=== PATIENT | female | born 1950 ===

== ENCOUNTER 2022-07-28 13:07 | Inpatient (IN) | payer MEDICARE ==
--- NOTE | 2022-07-28 15:28 | Emergency Department Report ---
ED General Adult HPI - General Chief complaint: Altered Mental Status Stated complaint: AMS PUI?: No Time Seen by Provider: 07/28/22 15:16 Source: family (SON AT BEDSIDE), EMS Mode of arrival: Stretcher Limitations: Altered Mental Status - History of Present Illness Initial comments: This is a 71-year-old female brought in by EMS with concerns of altered mental status. At the time of my arrival at bedside at 3:20, the son was at the bedside who provided a entire history. According to the son the mother has a medical history of diabetes and also hypertension and she has been a dialysis patient for the past 10 years. The m other has had dialysis this past or according to the son the patient had lost some blood and was foggy but the next day she was comfortably back to baseline. According to the son the baseline is that patient is AOx4 and ambulatory. Today, patient also had dialysis this morning and while on machine patient loss of consciousness and when regained alert, patient appears and that is why she is here today. At the time my evaluation patient is just rambling nonsense and does not follow direction (both verbal or written command). There are no focal neurological deficit. Severity scale (0 -10): 0 - Related Data Allergies Allergy/AdvReac Type Severity Reaction Status Date / Time lisinopril Allergy Unknown Verified 07/28/22 13:26 metoclopramide [From Reglan] Allergy Unknown Verified 07/28/22 13:26 ED Review of Systems ROS: Stated complaint: AMS Other details as noted in HPI Comment: Unobtainable due to pts medical conditions ED Past Medical Hx - Past Medical History Previous Medical History?: Yes Hx Hypertension: Yes Hx Diabetes: Yes Hx Renal Disease: Yes (HEMODYALYSIS) ED Physical Exam - General Limitations: Altered Mental Status General appearance: alert, other (Patient is pleasantly altered and rambling on nonsense. Does not recognize the son.) - Head Head exam: Present: atraumatic, normocephalic - Eye Eye exam: Present: normal appearance, PERRL, EOMI Pupils: Present: normal accommodation - ENT ENT exam: Present: normal exam, mucous membranes moist - Neck Neck exam: Present: normal inspection, full ROM - Respiratory Respiratory exam: Present: normal lung sounds bilaterally - Cardiovascular Cardiovascular Exam: Present: regular rate, normal rhythm, normal heart sounds - GI/Abdominal GI/Abdominal exam: Present: soft - Extremities Exam Extremities exam: Present: normal inspection, full ROM, normal capillary refill. Absent: tenderness - Back Exam Back exam: Present: normal inspection, full ROM - Neurological Exam Neurological exam: Present: alert, altered, CN II-XII intact - Skin Skin exam: Present: normal color ED Course Vital Signs 07/28/22 07/28/22 07/28/22 13:07 13:56 14:01 Temperature 98.1 F Pulse Rate 86 79 77 Respiratory 18 19 14 Rate Blood Pressure 152/56 Blood Pressure [Left] O2 Sat by Pulse 99 100 Oximetry 07/28/22 07/28/22 07/28/22 14:15 14:31 14:45 Temperature Pulse Rate 81 84 89 Respiratory 18 24 18 Rate Blood Pressure 143/59 143/59 130/52 Blood Pressure [Left] O2 Sat by Pulse 100 84 94 Oximetry 07/28/22 07/28/22 07/28/22 15:01 15:15 15:31 Temperature Pulse Rate 92 H 84 85 Respiratory 22 26 H 21 Rate Blood Pressure 143/59 172/66 172/66 Blood Pressure [Left] O2 Sat by Pulse 100 100 100 Oximetry 07/28/22 07/28/22 07/28/22 16:31 16:45 19:39 Temperature Pulse Rate 105 H Respiratory 12 18 Rate Blood Pressure 112/90 Blood Pressure 182/74 [Left] O2 Sat by Pulse 98 96 98 Oximetry 07/28/22 19:41 Temperature Pulse Rate 102 H Respiratory Rate Blood Pressure Blood Pressure [Left] O2 Sat by Pulse Oximetry - Reevaluation(s) Reevaluation #1: 07/28/22 15:54 NURSE BROUGHT TO MY ATTENTION PATIENT IS TOO AGITATED TO GET CXR/CT/BLOOD DRAWS. I WILL GIVE X1 VERSED 5MG 07/28/22 19:09 DURING REEVALUATION, PATIENT STILL APPEARS CONFUSED. LABS ARE CONSISTENT WITH ESRD-HD AND IMAGES ARE UNREMARKABLE. SPOKE TO DR. VELEZ. ED Medical Decision Making - Lab Data Result diagrams: 07/28/22 16:08 07/28/22 16:08 - EKG Data -: EKG Interpreted by Me EKG shows normal: sinus rhythm Rate: normal - EKG Data 07/28/22 15:28 EKG at 1446 review sinus rhythm at [address] segment elevation or depression and there is no Wellens wave. 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 Critical care attestation.: If time is entered above; I have spent that time in minutes in the direct care of this critically ill patient, excluding procedure time. ED Disposition Clinical Impression: Dialysis disequilibrium syndrome Disposition: ADMITTED INPATIENT Is pt being admited?: Yes Does the pt Need Aspirin: No Condition: Stable Referrals: JAZMIN IVY MD [Primary Care Provider] - 3-5 Days Time of Disposition: 19:55
[2022-07-28] MEDS: MIDAZOLAM 5 MG/5 ML INJ MDV IV NR ×2 (16:05→16:38)
[2022-07-28 16:25] LABS: Bacteria,Urine 1+ /HPF (Negative); Hyaline Casts,Urine 1 /LPF
[2022-07-28 16:37] LABS: Basophils % (Auto) 0.4 % (0.0-1.8); Hematocrit 33.4 % (30.3-42.9); Hemoglobin 11.1 gm/dl (10.1-14.3); Lymphocytes # (Auto) 0.5 K/mm3 (1.2-5.4); Lymphocytes % (Auto) 6.7 % (13.4-35.0); Mean Corpuscular HGB Conc 33 % (30-34); Mean Corpuscular Volume 91 fl (79-97); Monocytes # (Auto) 0.7 K/mm3 (0.0-0.8); Monocytes % (Auto) 8.3 % (0.0-7.3); Platelet Count 195 K/mm3 (140-440); Red Blood Count 3.69 M/mm3 (3.65-5.03); Red Cell Distribution Width 17.1 % (13.2-15.2)
[2022-07-28 16:40] LABS: Color,Urine Straw (Yellow)
[2022-07-28] MEDS ORDERED: ZIPRASIDONE MESYLATE 20 MG VIAL IM ONE (16:48)
[2022-07-28 16:57] LABS: Albumin 4.2 g/dL (3.9-5); Calcium 9.4 mg/dL (8.4-10.2)
--- NOTE | 2022-07-28 18:14 | Cat Scan Report ---
CT HEAD WITHOUT CONTRAST INDICATION / CLINICAL INFORMATION: ams. TECHNIQUE: All CT scans at this location are performed using CT dose reduction for ALARA by means of automated e xposure control. COMPARISON: None available. FINDINGS: HEMORRHAGE: No evidence of intracranial hemorrhage or extra-axial fluid collection. EXTRA-AXIAL SPACES: Cortical sulci and sylvian fissures are enlarged reflecting a degree of parenchym al volume loss which is somewhat greater than expected for the patient's age of 71 years. Basilar cis terns have an unremarkable appearance. VENTRICULAR SYSTEM: The third and lateral ventricles are mildly enlarged reflecting presence of age r elated parenchymal volume loss. CEREBRAL PARENCHYMA: Periventricular and deep white matter lucency is observed. This is probably seco ndary to microvascular ischemic change. There is no indication of recent infarction. Several remote s mall deep infarctions are identified in a bilateral gangliocapsular distribution as well as in the landeros binsular regions of both cerebral hemisphere. MIDLINE SHIFT OR HERNIATION: There is no mass effect. CEREBELLUM / BRAINSTEM: Brainstem has an unremarkable appearance. Age related cerebellar atrophy is n oted. MIDLINE STRUCTURES:Pituitary gland has an unremarkable appearance. No abnormalities are seen in the p ineal region. INTRACRANIAL VESSELS:Calcified atherosclerotic plaque is present along the course of the cavernous se gments of both internal carotid arteries. Similar findings are seen at the distal vertebral arteries. CRANIOCERVICAL JUNCTION:No significant abnormality. ORBITS: Status post bilateral cataract surgery. No additional abnormality. SOFT TISSUES of HEAD: There is prominent thickening of the scalp at the vertex secondary to increased adipose tissue accumulation in this distribution. CALVARIUM: Evaluation of bone windows reveals no abnormalities. PARANASAL SINUSES / MASTOID AIR CELLS: Frontal sinuses did not develop in this individual. Visualized paranasal sinuses are free from inflammatory mucosal disease. Mastoid air cells are normally pneumat ized. IMPRESSION: 1. No acute intracranial abnormality. 2. Moderate microvascular ischemic change and mild parenchymal volume loss. 3. 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 Signer Name: Eddie Damian MD Signed: 07/28/2022 6:10 PM Workstation Name: [id number]
--- NOTE | 2022-07-28 18:17 | XRay Report ---
CHEST 1 VIEW 07/28/2022 5:46 PM INDICATION / CLINICAL INFORMATION: ams. COMPARISON: None available. FINDINGS: SUPPORT DEVICES: None. HEART / MEDIASTINUM: The cardiac silhouette is borderline enlarged. LUNGS / PLEURA: Mild bilateral interstitial prominence. No large volume pleural effusion. No pneumoth orax. ADDITIONAL FINDINGS: No significant additional findings. IMPRESSION: 1. Questionable mild pulmonary edema. 2. Otherwise, no acute cardiopulmonary abnormality. Signer Name: Ashok Beltran MD Signed: 07/28/2022 6:13 PM Workstation Name: [id number]
--- NOTE | 2022-07-28 22:14 | History and Physical Report ---
History of Present Illness Date of examination: 07/28/22 Date of admission: 07/28/2022 Chief complaint: Altered sensorium History of present illness: 61-year-old female with history of end-stage renal disease on hemodialysis for 10 years after having dialysis at regular basis. Today after dialysis patient became confused and altered sensorium. During my examination also patient was confused and with altered sensorium. Baseline is patient is alert and oriented and takes care for ADLs and walks and physically active. No shortness of breath. No fever or chills. No chest pain. - Past Medical History --Previous Medical History?: Yes --Hypertension: Yes --Diabetes: Yes --Renal Disease: Yes (HEMODYALYSIS) -Past surgical history --AV fistula - Family history -- htn -Social history --no smoking or alcohol or drugs Review of Systems ROS: Constitutional no weight loss or weight gain no fever or chills HEENT no sore throat no post nasal drip no diplopia Neck no neck stiffness no lymph gland enlargement Chest and lungs no shortness of breath cough or wheezing CVS no chest pain no diaphoresis no palpitations GI no nausea no vomiting no diarrhea Genitourinary system no dysuria no flank pain Musculoskeletal system no muscle pains no joint pains [employer] confused and altered Skin no rash no itching Psychiatric no depression no homicidal or suicidal tendencies Hematologic no lymphedema or bruising Endocrine no polydipsia no polyuria no cold intolerance no heat intolerance Medications and Allergies Allergies Allergy/AdvReac Type Severity Reaction Status Date / Time lisinopril Allergy Unknown Verified 07/28/22 13:26 metoclopramide [From Reglan] Allergy Unknown Verified 07/28/22 13:26 Active Meds: Active Medications Midazolam HCl (Midazolam 5 Mg/5 Ml Inj Mdv) 5 mg IV ONCE NR Stop: 07/28/22 23:59 Last Admin: 07/28/22 16:38 Dose: 5 mg Exam - Constitutional Vitals: Temp Pulse Resp BP Pulse Ox 98.1 F 109 H 17 159/75 98 07/28/22 13:07 07/28/22 21:06 07/28/22 21:06 07/28/22 21:06 07/28/22 21:06 General appearance: Present: no acute distress, well-nourished - EENT Eyes: Present: PERRL ENT: hearing intact, clear oral mucosa - Neck Neck: Present: supple, normal ROM - Respiratory Respiratory effort: normal Respiratory: bilateral: CTA - Cardiovascular Heart rate: 78 Rhythm: regular Heart Sounds: Present: S1 & S2. Absent: rub, click - Extremities Extremities: pulses symmetrical, No edema Peripheral Pulses: within normal limits - Abdominal General gastrointestinal: Present: soft, non-tender, non-distended, normal bowel sounds Female genitourinary: Present: normal - Integumentary Integumentary: Present: clear, warm, dry - Musculoskeletal Musculoskeletal: gait normal, strength equal bilaterally - Psychiatric Psychiatric: other (Altered sensorium, confused) - Neurologic Neurologic: CNII-XII intact, moves all extremities Results - Labs CBC & Chem 7: 07/29/22 05:18 07/29/22 05:18 Labs: Laboratory Last Values WBC 7.8 K/mm3 (4.5-11.0) 07/28/22 16:08 RBC 3.69 M/mm3 (3.65-5.03) 07/28/22 16:08 Hgb 11.1 gm/dl (10.1-14.3) 07/28/22 16:08 Hct 33.4 % (30.3-42.9) 07/28/22 16:08 MCV 91 fl (79-97) 07/28/22 16:08 MCH 30 pg (28-32) 07/28/22 16:08 MCHC 33 % (30-34) 07/28/22 16:08 RDW 17.1 % (13.2-15.2) H 07/28/22 16:08 Plt Count 195 K/mm3 (140-440) 07/28/22 16:08 Lymph % (Auto) 6.7 % (13.4-35.0) L 07/28/22 16:08 [place] % (Auto) 8.3 % (0.0-7.3) H 07/28/22 16:08 Eos % (Auto) 0.0 % (0.0-4.3) 07/28/22 16:08 Baso % (Auto) 0.4 % (0.0-1.8) 07/28/22 16:08 Lymph # (Auto) 0.5 K/mm3 (1.2-5.4) L 07/28/22 16:08 [place] # (Auto) 0.7 K/mm3 (0.0-0.8) 07/28/22 16:08 Eos # (Auto) 0.0 K/mm3 (0.0-0.4) 07/28/22 16:08 Baso # (Auto) 0.0 K/mm3 (0.0-0.1) 07/28/22 16:08 Seg Neutrophils % 84.6 % (40.0-70.0) H 07/28/22 16:08 Seg Neutrophils # 6.6 K/mm3 (1.8-7.7) 07/28/22 16:08 Sodium 135 mmol/L (137-145) L 07/28/22 16:08 Potassium 4.5 mmol/L (3.6-5.0) 07/28/22 16:08 Chloride 93.6 mmol/L (98-107) L 07/28/22 16:08 Carbon Dioxide 20 mmol/L (22-30) L 07/28/22 16:08 Anion Gap 26 mmol/L 07/28/22 16:08 BUN 37 mg/dL (7-17) H 07/28/22 16:08 Creatinine 8.5 mg/dL (0.6-1.2) H 07/28/22 16:08 Estimated GFR 5 ml/min 07/28/22 16:08 BUN/Creatinine Ratio 4 % 07/28/22 16:08 Glucose 142 mg/dL (65-100) H 07/28/22 16:08 Calcium 9.4 mg/dL (8.4-10.2) 07/28/22 16:08 Magnesium 1.70 mg/dL (1.7-2.3) 07/28/22 16:08 Total Bilirubin 0.50 mg/dL (0.1-1.2) 07/28/22 16:08 AST 11 units/L (5-40) 07/28/22 16:08 ALT 6 units/L (7-56) L 07/28/22 16:08 Alkaline Phosphatase 93 units/L (35-129) 07/28/22 16:08 Ammonia 19.0 umol/L (25-60) L 07/28/22 16:08 Total Protein 6.4 g/dL (6.3-8.2) 07/28/22 16:08 Albumin 4.2 g/dL (3.9-5) 07/28/22 16:08 Albumin/Globulin Ratio 1.9 % 07/28/22 16:08 Urine Color Straw (Yellow) 07/28/22 Unknown Urine Turbidity Hazy (Clear) 07/28/22 Unknown Specific [place] (Man) 1.005 (1.003-1.030) 07/28/22 Unknown Ur Protein (Man) 3+ mg/dL (Negative) 07/28/22 Unknown Ur Ketones (Man) 15 (Negative) 07/28/22 Unknown Ur Nitrite (Man) Negative (Negative) 07/28/22 Unknown Ur Reducing Substances Not Reportable 07/28/22 Unknown Urine Bilirubin (Man) Negative (Negative) 07/28/22 Unknown Urine Ictotest Not Reportable 07/28/22 Unknown Leukocyte Esterase (Man) Negative (Negative) 07/28/22 Unknown Urine WBC (Auto) 1.0 /HPF (0.0-6.0) 07/28/22 Unknown Urine RBC (Auto) 2.0 /HPF (0.0-6.0) 07/28/22 Unknown U Epithel Cells (Auto) 23.0 /HPF (0-13.0) H 07/28/22 Unknown Urine Bacteria (Auto) 1+ /HPF (Negative) 07/28/22 Unknown Urine RBC (Manual) Negative (Negative) 07/28/22 Unknown Hyaline Casts 1 /LPF 07/28/22 Unknown Short CBC 07/28/22 07/29/22 Range/Units 16:08 05:18 WBC 7.8 9.1 (4.5-11.0) K/mm3 Hgb 11.1 10.3 (10.1-14.3) gm/dl Hct 33.4 31.4 (30.3-42.9) % Plt Count 195 197 (140-440) K/mm3 BMP 07/28/22 07/29/22 16:08 05:18 Sodium 135 L 135 L Potassium 4.5 5.0 Chloride 93.6 L 91.8 L Carbon Dioxide 20 L 24 BUN 37 H 45 H Creatinine 8.5 H 10.0 H Glucose 142 H 123 H Calcium 9.4 9.7 Liver Function 07/28/22 07/29/22 Range/Units 16:08 05:18 Total Bilirubin 0.50 0.40 (0.1-1.2) mg/dL AST 11 10 (5-40) units/L ALT 6 L 5 L (7-56) units/L Alkaline Phosphatase 93 81 (35-129) units/L Albumin 4.2 3.7 L (3.9-5) g/dL Urine 07/28/22 Range/Units Unknown Urine Color Straw (Yellow) Assessment and Plan Advance Directives: Yes (Full code) VTE prophylaxis?: Chemical Plan of care discussed with patient/family: Yes - Patient Problems (1) Dialysis disequilibrium syndrome Current Visit: Yes Status: Acute Plan to address problem: Altered sensorium secondary to disequilibrium Observation for 24 hours (2) Acute encephalopathy Current Visit: Yes Status: Acute Plan to address problem: Altered sensorium secondary to disequilibrium\ Should resolve with time May need another hemodialysis tomorrow Possible discharge tomorrow (3) ESRD on hemodialysis Current Visit: Yes Status: Chronic Plan to address problem: Nephrology consulted Possible hemodialysis tomorrow (4) Hypertension Current Visit: Yes Status: Chronic Qualifiers: Hypertension type: primary hypertension Qualified Code(s): I10 - Essential (primary) hypertension Plan to address problem: Continue antihypertensives and adjust medications as necessary (5) DVT prophylaxis Current Visit: Yes Status: Acute Plan to address problem: On heparin and GI prophylaxis (6) Advance care planning Current Visit: Yes Status: Acute Plan to address problem: Disease education conducted, care plan discussed, diagnosis discussed and prognosis discussed. Patient acknowledged understanding with care plan. +30 minutes.
[2022-07-28] MEDS ORDERED: oxyCODONE /ACETAMINOPHEN 5-325MG TAB PO PRN (22:19)
[2022-07-28] MEDS ORDERED: ONDANSETRON 4 MG/2 ML INJ IV PRN (22:19)
[2022-07-28] MEDS ORDERED: ACETAMINOPHEN 325 MG TAB PO PRN (22:19)
[2022-07-28] MEDS ORDERED: MORPHINE 2 MG/1 ML INJ IV PRN (22:19)
[2022-07-28] MEDS ORDERED: METOCLOPRAMIDE 10 MG/2 ML INJ IV PRN (22:19)
[2022-07-29] MEDS: HEPARIN 5,000 UNIT/1 ML VIAL SUB-Q SCH ×4 (00:51→22:25)
[2022-07-29] MEDS: HALOPERIDOL LACTATE 5 MG/1 ML INJ IM PRN ×2 (02:18→10:53)
[2022-07-29 05:57] LABS: Albumin 3.7 g/dL (3.9-5); Calcium 9.7 mg/dL (8.4-10.2)
[2022-07-29 07:06] LABS: Basophils % (Auto) 0.3 % (0.0-1.8); Hematocrit 31.4 % (30.3-42.9); Hemoglobin 10.3 gm/dl (10.1-14.3); Lymphocytes # (Auto) 1.2 K/mm3 (1.2-5.4); Lymphocytes % (Auto) 13.6 % (13.4-35.0); Mean Corpuscular HGB Conc 33 % (30-34); Mean Corpuscular Volume 92 fl (79-97); Monocytes % (Auto) 11.3 % (0.0-7.3); Platelet Count 197 K/mm3 (140-440); Red Cell Distribution Width 17.9 % (13.2-15.2)
--- NOTE | 2022-07-29 09:41 | Electrocardiograph Report ---
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
--- NOTE | 2022-07-29 09:41 | Electrocardiograph Report ---
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
--- NOTE | 2022-07-29 10:18 | Progress Note ---
Assessment and Plan Assessment and plan: Advance Directives: Yes (Full code) VTE prophylaxis?: Chemical Plan of care discussed with patient/family: Yes - Patient Problems --Dialysis disequilibrium syndrome Altered sensorium secondary to disequilibrium Observation for 24 hours Treat the underlying cause, neurochecks -- Acute toxic metabolic encephalopathy Altered sensorium secondary to disequilibrium\ Treat the underlying cause Dialysis per schedule --ESRD on hemodialysis Nephrology consulted Hemodialysis per schedule Closely monitor renal function, avoid nephrotoxins Renally dose medications --Hypertension Continue antihypertensives and adjust medications as necessary --Obesity; BMI 37.4 Counseling done advised diet modification exercise as tolerated and weight reduction when stable --DVT prophylaxis On heparin and GI prophylaxis Pepcid --Advance care planning Disease education conducted, care plan discussed, diagnosis discussed and prognosis discussed. With the son Patient's son acknowledged understanding with care plan. +30 minutes. We will closely monitor the patient and adjust management as needed Follow MRI of the brain,Follow clinically Physical therapy occupational therapy. When patient is more alert History Interval history: I have seen and examined the patient at the bedside Patient's chart and medications reviewed However patient is lethargic very difficult to arouse Response to deep stimuli Hemodynamically stable Hospitalist Physical - Constitutional Vitals: Temp Pulse Resp BP Pulse Ox 98.1 F 96 H 18 173/66 96 07/28/22 13:07 07/29/22 06:28 07/29/22 06:28 07/29/22 06:28 07/29/22 06:28 General appearance: Present: no acute distress, well-nourished, obese - EENT Eyes: Present: PERRL, EOM intact - Neck Neck: Present: supple, normal ROM - Respiratory Respiratory effort: normal Respiratory: bilateral: diminished, negative: rales, rhonchi, wheezing - Cardiovascular Rhythm: regular Heart Sounds: Present: S1 & S2 - Extremities Extremities: no ischemia, No edema - Abdominal General gastrointestinal: soft, non-tender, non-distended, normal bowel sounds - Psychiatric Psychiatric: other (Lethargic noncommunicative) - Neurologic Neurologic: other (Lethargic noncommunicative) Results - Labs CBC & Chem 7: 07/29/22 05:18 07/29/22 05:18 Labs: Laboratory Last Values WBC 9.1 K/mm3 (4.5-11.0) 07/29/22 05:18 RBC 3.40 M/mm3 (3.65-5.03) L 07/29/22 05:18 Hgb 10.3 gm/dl (10.1-14.3) 07/29/22 05:18 Hct 31.4 % (30.3-42.9) 07/29/22 05:18 MCV 92 fl (79-97) 07/29/22 05:18 MCH 30 pg (28-32) 07/29/22 05:18 MCHC 33 % (30-34) 07/29/22 05:18 RDW 17.9 % (13.2-15.2) H 07/29/22 05:18 Plt Count 197 K/mm3 (140-440) 07/29/22 05:18 Lymph % (Auto) 13.6 % (13.4-35.0) 07/29/22 05:18 [place] % (Auto) 11.3 % (0.0-7.3) H 07/29/22 05:18 Eos % (Auto) 0.0 % (0.0-4.3) 07/29/22 05:18 Baso % (Auto) 0.3 % (0.0-1.8) 07/29/22 05:18 Lymph # (Auto) 1.2 K/mm3 (1.2-5.4) 07/29/22 05:18 [place] # (Auto) 1.0 K/mm3 (0.0-0.8) H 07/29/22 05:18 Eos # (Auto) 0.0 K/mm3 (0.0-0.4) 07/29/22 05:18 Baso # (Auto) 0.0 K/mm3 (0.0-0.1) 07/29/22 05:18 Seg Neutrophils % 74.8 % (40.0-70.0) H 07/29/22 05:18 Seg Neutrophils # 6.8 K/mm3 (1.8-7.7) 07/29/22 05:18 Sodium 135 mmol/L (137-145) L 07/29/22 05:18 Potassium 5.0 mmol/L (3.6-5.0) 07/29/22 05:18 Chloride 91.8 mmol/L (98-107) L 07/29/22 05:18 Carbon Dioxide 24 mmol/L (22-30) 07/29/22 05:18 Anion Gap 24 mmol/L 07/29/22 05:18 BUN 45 mg/dL (7-17) H 07/29/22 05:18 Creatinine 10.0 mg/dL (0.6-1.2) H 07/29/22 05:18 Estimated GFR 4 ml/min 07/29/22 05:18 BUN/Creatinine Ratio 5 % 07/29/22 05:18 Glucose 123 mg/dL (65-100) H 07/29/22 05:18 POC Glucose 73 mg/dL (70-105) 07/28/22 15:22 Calcium 9.7 mg/dL (8.4-10.2) 07/29/22 05:18 Magnesium 1.70 mg/dL (1.7-2.3) 07/28/22 16:08 Total Bilirubin 0.40 mg/dL (0.1-1.2) 07/29/22 05:18 AST 10 units/L (5-40) 07/29/22 05:18 ALT 5 units/L (7-56) L 07/29/22 05:18 Alkaline Phosphatase 81 units/L (35-129) 07/29/22 05:18 Ammonia 19.0 umol/L (25-60) L 07/28/22 16:08 Total Protein 6.1 g/dL (6.3-8.2) L 07/29/22 05:18 Albumin 3.7 g/dL (3.9-5) L 07/29/22 05:18 Albumin/Globulin Ratio 1.5 % 07/29/22 05:18 Urine Color Straw (Yellow) 07/28/22 Unknown Urine Turbidity Hazy (Clear) 07/28/22 Unknown Specific [place] (Man) 1.005 (1.003-1.030) 07/28/22 Unknown Ur Protein (Man) 3+ mg/dL (Negative) 07/28/22 Unknown Ur Ketones (Man) 15 (Negative) 07/28/22 Unknown Ur Nitrite (Man) Negative (Negative) 07/28/22 Unknown Ur Reducing Substances Not Reportable 07/28/22 Unknown Urine Bilirubin (Man) Negative (Negative) 07/28/22 Unknown Urine Ictotest Not Reportable 07/28/22 Unknown Leukocyte Esterase (Man) Negative (Negative) 07/28/22 Unknown Urine WBC (Auto) 1.0 /HPF (0.0-6.0) 07/28/22 Unknown Urine RBC (Auto) 2.0 /HPF (0.0-6.0) 07/28/22 Unknown U Epithel Cells (Auto) 23.0 /HPF (0-13.0) H 07/28/22 Unknown Urine Bacteria (Auto) 1+ /HPF (Negative) 07/28/22 Unknown Urine RBC (Manual) Negative (Negative) 07/28/22 Unknown Hyaline Casts 1 /LPF 07/28/22 Unknown Microbiology: Microbiology 07/28/22 16:08 Peripheral/Venous Blood Culture - Preliminary Culture in Progress 07/28/22 16:08 Peripheral/Venous Blood Culture - Preliminary Culture in Progress Active Medications - Current Medications Current Medications: Generic Name Dose Route Start Last Admin Trade Name Freq PRN Reason Stop Dose Admin Acetaminophen 650 mg 07/28/22 22:19 Acetaminophen 325 Mg Tab PO Q4H PRN Pain MILD(1-3)/Fever >100.5/SIN Famotidine 10 mg 07/29/22 10:00 Famotidine 10 Mg Tab PO BID NAGA Haloperidol Lactate 5 mg 07/29/22 02:11 07/29/22 02:18 Haloperidol Lactate 5 Mg/1 Ml Inj IM 5 mg Q6H PRN Administration Agitation Heparin Sodium (Porcine) 5,000 unit 07/28/22 22:30 07/29/22 00:51 Heparin 5,000 Unit/1 Ml Vial SUB-Q 5,000 unit Q12HR NAGA Administration Morphine Sulfate 2 mg 07/28/22 22:19 Morphine 2 Mg/1 Ml Inj IV Q4H PRN Pain, Moderate (4-6) Ondansetron HCl 4 mg 07/28/22 22:19 Ondansetron 4 Mg/2 Ml Inj IV Q8H PRN Nausea And Vomiting Oxycodone/Acetaminophen 1 tab 07/28/22 22:19 Oxycodone /Acetaminophen 5-325mg Tab PO Q6H PRN Pain, Moderate (4-6) Sodium Chloride 10 ml 07/28/22 23:00 07/29/22 00:40 Sodium Chloride 0.9% 10 Ml Flush Syringe IV 10 ml BID NAGA Administration Sodium Chloride 10 ml 07/28/22 22:19 Sodium Chloride 0.9% 10 Ml Flush Syringe IV PRN PRN LINE FLUSH
[2022-07-29] MEDS: FAMOTIDINE 10 MG TAB PO SCH ×3 (10:22→22:25)
--- NOTE | 2022-07-29 12:45 | Consultation ---
History of Present Illness - Reason for Consult Consult date: 07/29/22 end stage renal disease - History of Present Illness RFC: ESRD on HD HPI: 61 year old F admitted with AMS and confusion. Pt is currently awake but confused and on restraints. She cannot give proper history. She does not know where she goes for dialysis or who is her clerk of scales. ROS: Unable to obtain as pt is confused - Past Medical History --Previous Medical History?: Yes --Hypertension: Yes --Diabetes: Yes --Renal Disease: Yes (HEMODYALYSIS) -Past surgical history --AV fistula - Family history -- htn -Social history --no smoking or alcohol or drugs Medications and Allergies Allergies Allergy/AdvReac Type Severity Reaction Status Date / Time lisinopril Allergy Unknown Verified 07/28/22 13:26 metoclopramide [From Reglan] Allergy Unknown Verified 07/28/22 13:26 Active Meds: Active Medications Acetaminophen (Acetaminophen 325 Mg Tab) 650 mg PO Q4H PRN PRN Reason: Pain MILD(1-3)/Fever >100.5/SIN Famotidine (Famotidine 10 Mg Tab) 10 mg PO BID [facility] Last Admin: 07/29/22 10:22 Dose: 10 mg Haloperidol Lactate (Haloperidol Lactate 5 Mg/1 Ml Inj) 5 mg IM Q6H PRN PRN Reason: Agitation Last Admin: 07/29/22 10:53 Dose: 5 mg Heparin Sodium (Porcine) (Heparin 5,000 Unit/1 Ml Vial) 5,000 unit SUB-Q Q12HR [facility] Last Admin: 07/29/22 10:26 Dose: 5,000 unit Morphine Sulfate (Morphine 2 Mg/1 Ml Inj) 2 mg IV Q4H PRN PRN Reason: Pain, Moderate (4-6) Ondansetron HCl (Ondansetron 4 Mg/2 Ml Inj) 4 mg IV Q8H PRN PRN Reason: Nausea And Vomiting Oxycodone/Acetaminophen (Oxycodone /Acetaminophen 5-325mg Tab) 1 tab PO Q6H PRN PRN Reason: Pain, Moderate (4-6) Sodium Chloride (Sodium Chloride 0.9% 10 Ml Flush Syringe) 10 ml IV BID [facility] Last Admin: 07/29/22 10:22 Dose: 10 ml Sodium Chloride (Sodium Chloride 0.9% 10 Ml Flush Syringe) 10 ml IV PRN PRN PRN Reason: LINE FLUSH Exam - Vital Signs Vital signs: Vital Signs Temp Pulse Resp Pulse Ox 98.1 F 86 18 99 07/28/22 13:07 07/28/22 13:07 07/28/22 13:07 07/28/22 13:07 - Physical Exam Narrative exam: General appearance: Present: no acute distress, well-nourished - EENT Eyes: Present: PERRL ENT: hearing intact, clear oral mucosa - Neck Neck: Present: supple, normal ROM - Respiratory Respiratory effort: normal Respiratory: bilateral: CTA - Cardiovascular Heart rate: 78 Rhythm: regular Heart Sounds: Present: S1 & S2. Absent: rub, click - Extremities Extremities: pulses symmetrical, No edema Peripheral Pulses: within normal limits - Abdominal General gastrointestinal: Present: soft, non-tender, non-distended, normal bowel sounds Female genitourinary: Present: normal - Integumentary Integumentary: Present: clear, warm, dry - Musculoskeletal Musculoskeletal: gait normal, strength equal bilaterally - Psychiatric Psychiatric: other (Altered sensorium, confused) - Neurologic Neurologic: CNII-XII intact, moves all extremities Results - Lab Results 07/29/22 05:18 07/29/22 05:18 Most recent lab results Calcium 9.7 mg/dL (8.4-10.2) 07/29/22 05:18 Magnesium 1.70 mg/dL (1.7-2.3) 07/28/22 16:08 Assessment and Plan ESRD on HD: AMS: HTN: Obesity: -Pt currently confused. Does not remember where she goes for dialysis or who is her clerk of scales -HD ordered for tomorrow -If remains confused tomorrow, can contact family to get HD consent inpatient, otherwise can take consent from her -Renally dose all meds -Monitor Hg for epogen need
[2022-07-29] MEDS ORDERED: SODIUM POLYSTYRENE 15 GM/60 ML ORAL LIQD PO ONE ×2 (13:00→19:00)
[2022-07-29] MEDS ORDERED: SIMPLE SYRUP 15 ML FEEDTUBE PRN ×2 (14:20)
[2022-07-29] MEDS ORDERED: SODIUM BICARBONATE 325 MG TAB FEEDTUBE PRN (14:20)
[2022-07-29] MEDS ORDERED: LIPASE 10,500/PROTEASE 25,000/AMYLASE 43,750 (UNITS) DR CAP FEEDTUBE PRN (14:20)
[2022-07-29] MEDS ORDERED: D5W/0.9% NACL 1,000 ML IV SCH (15:00)
--- NOTE | 2022-07-29 17:11 | XRay Report ---
ABDOMEN 1 VIEW(S) INDICATION / CLINICAL INFORMATION: Dobhoff placement. COMPARISON: None available. FINDINGS: TUBES / LINES: Feeding tube tip distal stomach. BOWEL GAS PATTERN: No significant abnormality. ADDITIONAL FINDINGS: No significant additional findings. IMPRESSION: Feeding tube tip distal stomach. Signer Name: Dennis Suh MD Signed: 07/29/2022 5:06 PM Workstation Name: [id number]
--- NOTE | 2022-07-29 17:56 | Event Note ---
Date: 07/29/22 I spoke with the patient's son extensively the patient's condition, tests and reports, treatment plan Patient's diagnosis, pending MRI study, pending neurology consult, he had many questions I answered all of them, he verbalized understanding, I encouraged him to call if he has any new questions or concerns
--- NOTE | 2022-07-30 08:11 | Progress Note ---
Assessment and Plan Assessment and plan: 61-year-old female with history of end-stage renal disease on hemodialysis for 10 years after having dialysis at regular basis. Today after dialysis patient became confused and altered sensorium. During my examination also patient was confused and with altered sensorium. Baseline is patient is alert and oriented and takes care for ADLs and walks and physically active. No shortness of breath. No fever or chills. No chest pain. Advance Directives: Yes (Full code) VTE prophylaxis?: Chemical Plan of care discussed with patient/family: Yes - Patient Problems --Dialysis disequilibrium syndrome Altered sensorium secondary to disequilibrium Observation for 24 hours Treat the underlying cause, neurochecks -- Acute toxic metabolic encephalopathy Altered sensorium secondary to disequilibrium\ Treat the underlying cause Dialysis per schedule --ESRD on hemodialysis Nephrology consulted Hemodialysis per schedule Closely monitor renal function, avoid nephrotoxins Renally dose medications --Hypertension Continue antihypertensives and adjust medications as necessary --Obesity; BMI 37.4 Counseling done advised diet modification exercise as tolerated and weight reduction when stable --DVT prophylaxis On heparin and GI prophylaxis Pepcid --Advance care planning Disease education conducted, care plan discussed, diagnosis discussed and prognosis discussed. With the son Patient's son acknowledged understanding with care plan. +30 minutes. --Preventive health care counseling; Counseled adhering to the treatment plan, hemodialysis Counseled fall precautions --obesity/weight reduction counseling done +20 minutes Advised lifestyle changes, dietary modification, exercise as tolerated and weight reduction When medically stable, patient and family verbalized understanding We will closely monitor the patient and adjust management as needed Follow MRI of the brain,Follow clinically Physical therapy occupational therapy. When patient is more alert Disposition; follow MRI brain, follow clinically Follow-up PT OT recommendations DC planning per case management, DC in 1 to 2 days if stable Hospitalist Physical - Constitutional Vitals: Temp Pulse Resp BP Pulse Ox 98.1 F 79 17 147/55 95 07/29/22 21:15 07/29/22 21:15 07/30/22 02:00 07/29/22 21:15 07/30/22 02:00 General appearance: Present: no acute distress, well-nourished, obese Results - Labs CBC & Chem 7: 07/29/22 05:18 07/29/22 05:18 Labs: Laboratory Last Values WBC 9.1 K/mm3 (4.5-11.0) 07/29/22 05:18 RBC 3.40 M/mm3 (3.65-5.03) L 07/29/22 05:18 Hgb 10.3 gm/dl (10.1-14.3) 07/29/22 05:18 Hct 31.4 % (30.3-42.9) 07/29/22 05:18 MCV 92 fl (79-97) 07/29/22 05:18 MCH 30 pg (28-32) 07/29/22 05:18 MCHC 33 % (30-34) 07/29/22 05:18 RDW 17.9 % (13.2-15.2) H 07/29/22 05:18 Plt Count 197 K/mm3 (140-440) 07/29/22 05:18 Lymph % (Auto) 13.6 % (13.4-35.0) 07/29/22 05:18 [place] % (Auto) 11.3 % (0.0-7.3) H 07/29/22 05:18 Eos % (Auto) 0.0 % (0.0-4.3) 07/29/22 05:18 Baso % (Auto) 0.3 % (0.0-1.8) 07/29/22 05:18 Lymph # (Auto) 1.2 K/mm3 (1.2-5.4) 07/29/22 05:18 [place] # (Auto) 1.0 K/mm3 (0.0-0.8) H 07/29/22 05:18 Eos # (Auto) 0.0 K/mm3 (0.0-0.4) 07/29/22 05:18 Baso # (Auto) 0.0 K/mm3 (0.0-0.1) 07/29/22 05:18 Seg Neutrophils % 74.8 % (40.0-70.0) H 07/29/22 05:18 Seg Neutrophils # 6.8 K/mm3 (1.8-7.7) 07/29/22 05:18 Sodium 135 mmol/L (137-145) L 07/29/22 05:18 Potassium 5.0 mmol/L (3.6-5.0) 07/29/22 05:18 Chloride 91.8 mmol/L (98-107) L 07/29/22 05:18 Carbon Dioxide 24 mmol/L (22-30) 07/29/22 05:18 Anion Gap 24 mmol/L 07/29/22 05:18 BUN 45 mg/dL (7-17) H 07/29/22 05:18 Creatinine 10.0 mg/dL (0.6-1.2) H 07/29/22 05:18 Estimated GFR 4 ml/min 07/29/22 05:18 BUN/Creatinine Ratio 5 % 07/29/22 05:18 Glucose 123 mg/dL (65-100) H 07/29/22 05:18 POC Glucose 73 mg/dL (70-105) 07/28/22 15:22 Calcium 9.7 mg/dL (8.4-10.2) 07/29/22 05:18 Magnesium 1.70 mg/dL (1.7-2.3) 07/28/22 16:08 Total Bilirubin 0.40 mg/dL (0.1-1.2) 07/29/22 05:18 AST 10 units/L (5-40) 07/29/22 05:18 ALT 5 units/L (7-56) L 07/29/22 05:18 Alkaline Phosphatase 81 units/L (35-129) 07/29/22 05:18 Ammonia 19.0 umol/L (25-60) L 07/28/22 16:08 Total Protein 6.1 g/dL (6.3-8.2) L 07/29/22 05:18 Albumin 3.7 g/dL (3.9-5) L 07/29/22 05:18 Albumin/Globulin Ratio 1.5 % 07/29/22 05:18 Urine Color Straw (Yellow) 07/28/22 Unknown Urine Turbidity Hazy (Clear) 07/28/22 Unknown Specific [place] (Man) 1.005 (1.003-1.030) 07/28/22 Unknown Ur Protein (Man) 3+ mg/dL (Negative) 07/28/22 Unknown Ur Ketones (Man) 15 (Negative) 07/28/22 Unknown Ur Nitrite (Man) Negative (Negative) 07/28/22 Unknown Ur Reducing Substances Not Reportable 07/28/22 Unknown Urine Bilirubin (Man) Negative (Negative) 07/28/22 Unknown Urine Ictotest Not Reportable 07/28/22 Unknown Leukocyte Esterase (Man) Negative (Negative) 07/28/22 Unknown Urine WBC (Auto) 1.0 /HPF (0.0-6.0) 07/28/22 Unknown Urine RBC (Auto) 2.0 /HPF (0.0-6.0) 07/28/22 Unknown U Epithel Cells (Auto) 23.0 /HPF (0-13.0) H 07/28/22 Unknown Urine Bacteria (Auto) 1+ /HPF (Negative) 07/28/22 Unknown Urine RBC (Manual) Negative (Negative) 07/28/22 Unknown Hyaline Casts 1 /LPF 07/28/22 Unknown Microbiology: Microbiology 07/28/22 16:08 Peripheral/Venous Blood Culture - Preliminary NO GROWTH AFTER 24 HOURS 07/28/22 16:08 Peripheral/Venous Blood Culture - Preliminary NO GROWTH AFTER 24 HOURS Swan/IV: Voiding Method External Female Catheter Active Medications - Current Medications Current Medications: Generic Name Dose Route Start Last Admin Trade Name Freq PRN Reason Stop Dose Admin Acetaminophen 650 mg 07/28/22 22:19 Acetaminophen 325 Mg Tab PO Q4H PRN Pain MILD(1-3)/Fever >100.5/SIN Lipase/Protease/Amylase 1 each 07/29/22 14:20 Lipase 10,500/Protease 25,000/Amylase 43,750 (Units) Dr Carrasquillo FEEDTUBE PRN PRN For Clogged Feeding Tube Famotidine 10 mg 07/29/22 10:00 07/29/22 22:25 Famotidine 10 Mg Tab PO Not Given BID [facility] Haloperidol Lactate 5 mg 07/29/22 02:11 07/29/22 10:53 Haloperidol Lactate 5 Mg/1 Ml Inj IM 5 mg Q6H PRN Administration Agitation Heparin Sodium (Porcine) 5,000 unit 07/28/22 22:30 07/29/22 22:25 Heparin 5,000 Unit/1 Ml Vial SUB-Q Not Given Q12HR [facility] Dextrose/Sodium Chloride 1,000 mls @ 75 mls/hr 07/29/22 15:00 07/29/22 22:26 D5ns IV 75 mls/hr DIRECT [facility] Administration Morphine Sulfate 2 mg 07/28/22 22:19 Morphine 2 Mg/1 Ml Inj IV Q4H PRN Pain, Moderate (4-6) Ondansetron HCl 4 mg 07/28/22 22:19 Ondansetron 4 Mg/2 Ml Inj IV Q8H PRN Nausea And Vomiting Oxycodone/Acetaminophen 1 tab 07/28/22 22:19 Oxycodone /Acetaminophen 5-325mg Tab PO Q6H PRN Pain, Moderate (4-6) Simple Syrup 15 ml 07/29/22 14:20 Simple Syrup 15 Ml FEEDTUBE PRN PRN Hypoglycemia Simple Syrup 30 ml 07/29/22 14:20 Simple Syrup 15 Ml FEEDTUBE PRN PRN Hypoglycemia Sodium Bicarbonate 325 mg 07/29/22 14:20 Sodium Bicarbonate 325 Mg Tab FEEDTUBE PRN PRN For Clogged Feeding Tube Sodium Chloride 10 ml 07/28/22 23:00 07/29/22 22:19 Sodium Chloride 0.9% 10 Ml Flush Syringe IV 10 ml BID [facility] Administration Sodium Chloride 10 ml 07/28/22 22:19 Sodium Chloride 0.9% 10 Ml Flush Syringe IV PRN PRN LINE FLUSH
--- NOTE | 2022-07-30 10:07 | Progress Note ---
Assessment and Plan Assessment: ESRD on Hemodialysis: AMS: Hypertension: Obesity: Plan: -Hemodialysis today for UF and clearance -Son at bedside who consented for patient's hemodialysis -Fluid restriction of 1 liter per day -Renally dose all medications -Obtain daily weights -Monitor I/O's daily -Assess dialysis needs daily -Plan of care reviewed by Dr. Adan Subjective Date of service: 07/30/22 Principal diagnosis: ESRD Interval history: Patient seen standing up in room. Son at bedside who gave consent for hemodialysis. Objective - Vital Signs Vital signs: Vital Signs - 12hr 07/30/22 02:00 Respiratory 17 Rate O2 Sat by Pulse 95 Oximetry - General Appearance General appearance: well-developed, appears stated age EENT: ATNC, PERRL, hearing intact, vision intact Neck: no JVD, supple Respiratory: Present: Decreased Breath Sounds Cardiology: S1S2 Gastrointestinal: normoactive bowel sounds Integumentary: warm and dry Neurologic: alert and oriented x3 Musculoskeletal: other (No edema) - Lab 07/29/22 05:18 07/29/22 05:18 Most recent lab results Calcium 9.7 mg/dL (8.4-10.2) 07/29/22 05:18 Magnesium 1.70 mg/dL (1.7-2.3) 07/28/22 16:08 Medications & Allergies - Medications Allergies/Adverse Reactions: Allergies lisinopril Allergy (Verified 07/28/22 13:26) Unknown metoclopramide [From Reglan] Allergy (Verified 07/28/22 13:26) Unknown Home Medications: Home Medications Medication Instructions Recorded Confirmed Last Taken Type Acetaminophen [Tylenol Extra 500 mg PO PRN 07/29/22 07/29/22 2 Weeks Ago History Strength] ~07/15/22 Bimatoprost 0.01%(Nf) [Lumigan 1 drop OU QPM 07/29/22 07/29/22 2 Weeks Ago History 0.01%(Nf)] ~07/15/22 Cinacalcet HCl [Sensipar] 60 mg PO DAILY 07/29/22 07/29/22 2 Days Ago History ~07/27/22 Diphenhydramine HCl [Sleep Tabs 25 mg PO PRN 07/29/22 07/29/22 2 Days Ago History 25MG] ~07/27/22 Fluticasone Propionate [Flovent 50 mcg IH QDAY PRN 07/29/22 07/29/22 2 Days Ago History Diskus] ~07/27/22 Gabapentin [Neurontin] 100 mg PO Q8HR 07/29/22 07/29/22 2 Days Ago History ~07/27/22 HYDROcodone/APAP 5-325 [[place] 1 each PO Q6HR PRN 07/29/22 07/29/22 1 Week Ago History 5/325] ~07/22/22 Hydrocortisone [Cortizone-10] 1 applicatio TP PRN PRN 07/29/22 07/29/22 2 Days Ago History ~07/27/22 Metoprolol Tartrate [Lopressor] 100 mg PO BID 07/29/22 07/29/22 2 Days Ago History ~07/27/22 Omeprazole 40 mg PO QDAY 07/29/22 07/29/22 2 Days Ago History ~07/27/22 Promethazine Dm (Nf) [Phenergan Dm 5 ml PO Q6H PRN 07/29/22 07/29/22 1 Week Ago History 6.25/15 mg 5 ml] ~07/22/22 Tiotropium [place] [Spiriva 1.25 mcg IH QDAY 07/29/22 07/29/22 2 Days Ago History Respimat] ~07/27/22 hydrALAZINE [Apresoline] 25 mg PO Q8HR 07/29/22 07/29/22 2 Days Ago History ~07/27/22 Active Medications: Generic Name Dose Route Start Last Admin Trade Name Freq PRN Reason Stop Dose Admin Acetaminophen 650 mg 07/28/22 22:19 Acetaminophen 325 Mg Tab PO Q4H PRN Pain MILD(1-3)/Fever >100.5/SIN Lipase/Protease/Amylase 1 each 07/29/22 14:20 Lipase 10,500/Protease 25,000/Amylase 43,750 (Units) Dr Carrasquillo FEEDTUBE PRN PRN For Clogged Feeding Tube Famotidine 10 mg 07/29/22 10:00 07/29/22 22:25 Famotidine 10 Mg Tab PO Not Given BID [facility] Haloperidol Lactate 5 mg 07/29/22 02:11 07/29/22 10:53 Haloperidol Lactate 5 Mg/1 Ml Inj IM 5 mg Q6H PRN Administration Agitation Heparin Sodium (Porcine) 5,000 unit 07/28/22 22:30 07/29/22 22:25 Heparin 5,000 Unit/1 Ml Vial SUB-Q Not Given Q12HR [facility] Dextrose/Sodium Chloride 1,000 mls @ 75 mls/hr 07/29/22 15:00 07/29/22 22:26 D5ns IV 75 mls/hr DIRECT [facility] Administration Morphine Sulfate 2 mg 07/28/22 22:19 Morphine 2 Mg/1 Ml Inj IV Q4H PRN Pain, Moderate (4-6) Ondansetron HCl 4 mg 07/28/22 22:19 Ondansetron 4 Mg/2 Ml Inj IV Q8H PRN Nausea And Vomiting Oxycodone/Acetaminophen 1 tab 07/28/22 22:19 Oxycodone /Acetaminophen 5-325mg Tab PO Q6H PRN Pain, Moderate (4-6) Simple Syrup 15 ml 07/29/22 14:20 Simple Syrup 15 Ml FEEDTUBE PRN PRN Hypoglycemia Simple Syrup 30 ml 07/29/22 14:20 Simple Syrup 15 Ml FEEDTUBE PRN PRN Hypoglycemia Sodium Bicarbonate 325 mg 07/29/22 14:20 Sodium Bicarbonate 325 Mg Tab FEEDTUBE PRN PRN For Clogged Feeding Tube Sodium Chloride 10 ml 07/28/22 23:00 07/29/22 22:19 Sodium Chloride 0.9% 10 Ml Flush Syringe IV 10 ml BID [facility] Administration Sodium Chloride 10 ml 07/28/22 22:19 Sodium Chloride 0.9% 10 Ml Flush Syringe IV PRN PRN LINE FLUSH
[2022-07-30] MEDS: FAMOTIDINE 10 MG TAB PO SCH (10:19)
[2022-07-30] MEDS: HEPARIN 5,000 UNIT/1 ML VIAL SUB-Q SCH (10:20)
--- NOTE | 2022-07-30 15:10 | Discharge Summary ---
Providers - Providers Date of Admission: 07/28/22 22:19 Date of discharge: 07/30/22 Attending physician: SAVI PANDA 07/28/22 22:25 Consult to Physician [CONS] Routine Comment: Consulting Provider: ROJELIO CAMPBELL Physician Instructions: Reason For Exam: ESRD 07/29/22 14:20 Consult to Dietitian/Nutrition [CONS] Routine Physician Instructions: Assess nutrtn needs, initiate, modify, manage TF Reason For Exam: Reason for Consult: Write/Manage Tube Feeding Reason for Consult: Write/Manage Tube Feeding 07/30/22 08:14 Occupational Therapy Evaluate and Treat [CONS] Routine Comment: Reason For Exam: General debility/evaluate and treat/DC needs Physical Therapy Evaluation and Treat [CONS] Routine Comment: Reason For Exam: General debility evaluate and treat/DC needs Primary care physician: JAZMIN IVY Hospitalization Condition: Stable Hospital course: 61-year-old female with history of end-stage renal disease on hemodialysis for 10 years after having dialysis at regular basis. Today after dialysis patient became confused and altered sensorium. During my examination also patient was confused and with altered sensorium. Baseline is patient is alert and oriented and takes care for ADLs and walks and physically active. No shortness of breath. No fever or chills. No chest pain. Advance Directives: Yes (Full code) VTE prophylaxis?: Chemical Plan of care discussed with patient/family: Yes - Patient Problems --Dialysis disequilibrium syndrome Brief altered level of consciousness postdialysis CT head negative for acute abnormalities Symptoms resolved Patient and son refused MRI as she is better -- Acute toxic metabolic encephalopathy/resolved Altered sensorium secondary to disequilibrium\ Dialysis per schedule --ESRD on hemodialysis HD per schedule HD today, continue hemodialysis per schedule as before --Hypertension/well-controlled Continue antihypertensives and adjust medications as necessary --Obesity; BMI 37.4 Counseling done advised diet modification exercise as tolerated and weight reduction when stable --DVT prophylaxis On heparin and GI prophylaxis Pepcid --Advance care planning Disease education conducted, care plan discussed, diagnosis discussed and prognosis discussed. With the son Patient's son acknowledged understanding with care plan. +30 minutes. --Preventive health care counseling; Counseled adhering to the treatment plan, hemodialysis Counseled fall precautions --obesity/weight reduction counseling done +20 minutes Advised lifestyle changes, dietary modification, exercise as tolerated and weight reduction When medically stable, patient and family verbalized understanding We will closely monitor the patient and adjust management as needed Follow MRI of the brain,Follow clinically Physical therapy occupational therapy. When patient is more alert Disposition; follow MRI brain, follow clinically Follow-up PT OT recommendations DC planning per case management, DC in 1 to 2 days if stable Disposition: 01 HOME / SELF CARE / HOMELESS Final Discharge Diagnosis (Prints w/discharge instructions): Dialysis disequilibrium syndrome/resolved. Acute toxic metabolic encephalopathy resolved. End-stage renal disease on hemodialysis. Hypertension. Obesity BMI 37.4 Time spent for discharge: 35 minutes Core Measure Documentation - Palliative Care Palliative Care/ Comfort Measures: Not Applicable - Core Measures Any of the following diagnoses?: none Exam - Constitutional Vitals: Temp Pulse Resp BP Pulse Ox 98.0 F 96 H 20 173/73 97 07/30/22 13:40 07/30/22 14:45 07/30/22 13:40 07/30/22 14:45 07/30/22 13:40 General appearance: Present: no acute distress, well-nourished - EENT Eyes: Present: PERRL, EOM intact - Neck Neck: Present: supple, normal ROM - Respiratory Respiratory effort: normal Respiratory: bilateral: diminished, negative: rales, rhonchi, wheezing - Cardiovascular Rhythm: regular Heart Sounds: Present: S1 & S2 - Extremities Extremities: no ischemia, No edema - Abdominal General gastrointestinal: Present: soft, non-tender, non-distended, normal bowel sounds - Integumentary Integumentary: Present: clear, warm - Musculoskeletal Musculoskeletal: strength equal bilaterally, generalized weakness - Psychiatric Psychiatric: appropriate mood/affect, agitated - Neurologic Neurologic: moves all extremities Plan Activity: advance as tolerated, fall precautions Diet: renal Additional Instructions: Advised to follow private clinic director/hemodialysis per schedule. Fall precautions. Advised follow primary care physician in 5 to 7 days. if you have worsening symptoms contact MD or go to the nearest emergency room as needed. Advised dietary modification, exercise as tolerated and weight reduction when you are medically stable Follow up with: JAZMIN IVY MD [Primary Care Provider] - 3-5 Days
[2022-07-30 16:14] LABS: Hepatitis B Surface Antigen Non-Reactive (Negative); Hepatitis C Virus Antibody Non-Reactive (NonReactive)
[2022-07-30 17:02] VITALS: BP 171/64
== END 2022-07-30 17:55 | disposition home or self-care (01) | DRG 640 ==
LOC: ED 13:07 → 3A 22:19
PROVIDERS: ADMIT Internal Medicine; ATTEND Internal Medicine
PROC: 5A1D70Z Performance of Urinary Filtration, Intermittent, Less than 6 Hours Per Day (ICD-10-PCS; principal; 2022-07-30)
DX: E87.8 Other disorders of electrolyte and fluid balance, not elsewhere classified (principal); G92.8 Other toxic encephalopathy; N18.6 End stage renal disease; I12.0 Hypertensive chronic kidney disease with stage 5 chronic kidney disease or end stage renal disease; E11.22 Type 2 diabetes mellitus with diabetic chronic kidney disease; E66.9 Obesity, unspecified; Z68.37 Body mass index [BMI] 37.0-37.9, adult; Z99.2 Dependence on renal dialysis; Z88.8 Allergy status to other drugs, medicaments and biological substances; Z82.49 Family history of ischemic heart disease and other diseases of the circulatory system; Z71.3 Dietary counseling and surveillance
CPT/HCPCS: 36415; 70450; 71045; 74018; 80053; 80074; 81001; 82140; 82962; 83735; 85025; 87040; 93005; 96372; 96374; 99285; G0378; J3490; J1630; J1644; J2250; J3486; J7042